=== PATIENT | male | born 1960 | race Caucasian/White ===

== ENCOUNTER → 2024-07-26 | Outpatient (CLI) | payer SELFPAY ==
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
--- NOTE | 2024-07-26 17:49 | RAD_ITS ---
PROCEDURE: Cervical spine radiographs, 6 views REASON FOR EXAM: Pain TECHNIQUE: 6 radiographic views of the cervical spine were obtained. COMPARISON: None available FINDINGS: 6 views of the cervical spine were obtained. Bones are osteopenic. Prevertebral soft tissues unremarkable. On the lateral projection, the cervical spine is imaged from the skull base through the C7-T1 interspace. There is grade 1 anterolisthesis of C7 relative to T1. No acute cervical vertebral body fracture. Moderate multilevel degenerative disc disease in the cervical spine. Moderate right neural foraminal narrowing at C3-4 through C5-6. Moderate to severe left neural foraminal narrowing at C3-4 through C5-6. Upper lungs grossly clear. The visualized odontoid process is grossly intact, although detail is limited. The patient's head is rotated to the right on the open-mouth odontoid view. RAD/Cerv Spine 4 or 5 Views IMPRESSION: Osteopenia. No acute bony abnormality of the cervical spine. Moderate multilevel degenerative disc and facet disease in the cervical spine, with bilateral neural foraminal narrowing as above. If there is persistent pain or clinical concern, short-term follow-up MRI evalu ation may be considered. Reading Location: [facility]
== END | disposition home or self-care (01) ==
LOC: RAD 17:44
PROVIDERS: Referring Provider Chiropractor Orthopedic; Visit Provider Chiropractor Orthopedic
DX: M54.2 Cervicalgia (principal); M54.6 Pain in thoracic spine
CPT/HCPCS: 72050; 72072